=== PATIENT | male | born 1945 ===

== ENCOUNTER 2022-04-25 07:03 | Outpatient (CLI) | payer BC | END 2022-04-25 23:59 | disposition home or self-care (01) | LOC: LAB 07:03 | PROVIDERS: ATTEND Ophthalmology | DX: Z01.812 Encounter for preprocedural laboratory examination (principal); Z20.822 Contact with and (suspected) exposure to COVID-19 ==

== ENCOUNTER 2022-04-26 07:28 | Day surgery (SDC) | payer BC ==
[~2022-04-26 07:28] MED LIST: BALANCED SALT IRRIG SOLN COMB1 500 ML ONE; BALANCED SALT IRRIG SOLN COMB2 15 ML IRRIG.SOLN ONE; BUPIVACAINE PF 0.5% 30 ML VIAL ONE; CIPROFLOXACIN 0.3% OPHT DROP 2.5 ML BOTTLE ONE; HYALURONATE SODIUM 12.8 MG/0.8 ML DISP.SYRIN ONE; HYALURONATE SODIUM 8.5 MG/0.85 ML ONE; LIDOCAINE-MPF 2% 5 ML VIAL ONE; MOXIFLOXACIN HCL 3 ML OPHT DROPS ONE; NEO/POLYMYX B/DEXAME OPHT OINT 3.5 GM TUBE ONE; TETRACAINE HCL 0.5% OPHT DROP 2 ML BOTTLE ONE
[2022-04-26] MEDS ORDERED: PHENYLEPHRINE 2.5% OPHT DROP 2 ML BOTTLE ONE (07:47)
[2022-04-26] MEDS ORDERED: CYCLOPENTOLATE 1% OPHT DROP 2 ML BOTTLE ONE (07:47)
[2022-04-26] MEDS ORDERED: CIPROFLOXACIN 0.3% OPHT DROP 2.5 ML BOTTLE ONE (07:47)
[2022-04-26] MEDS ORDERED: KETOROLAC 0.5% OPHT DROP 3 ML BOTTLE ONE (07:47)
[2022-04-26] MEDS ORDERED: TROPICAMIDE 1% OPHT DROP 3 ML BOTTLE ONE (07:47)
[2022-04-26] MEDS ORDERED: PROPARACAINE 0.5% OPHT DROP 15 ML BOTTLE ONE (07:48)
[2022-04-26] MEDS ORDERED: ACETYLCHOLINE CHLORIDE 1% OPHT 1 EA KIT ONE (07:52)
[2022-04-26] MEDS ORDERED: FENTANYL CITRATE 100 MCG/2 ML AMPUL ONE (07:56)
[2022-04-26] MEDS ORDERED: LIDOCAINE HCL-MPF 1% 5 ML VIAL ONE (08:16)
[2022-04-26] MEDS ORDERED: HYALURONIDASE,OVINE 200 UNITS/ML VIAL ONE (08:20)
[2022-04-26] MEDS ORDERED: TETRACAINE HCL 0.5% OPHT DROP 2 ML BOTTLE ONE ×2 (08:20→09:40)
[2022-04-26] MEDS ORDERED: LIDOCAINE HCL 2% 5 ML JELLY ONE (08:41)
[2022-04-26] MEDS ORDERED: BALANCED SALT IRRIG SOLN COMB1 500 ML, EPINEPHRINE-PF 1:1000 0.5 MG IO ONE ×2 (09:00)
[2022-04-26] MEDS ORDERED: LIDOCAINE-MPF 2% 5 ML VIAL ONE (10:11)
[2022-04-26] MEDS ORDERED: PROPOFOL 200 MG/20 ML BOTTLE ONE (10:11)
== END 2022-04-26 11:30 | disposition home or self-care (01) ==
LOC: DS 07:28
PROVIDERS: ATTEND Ophthalmology
DX: H25.89 Other age-related cataract (principal); I10 Essential (primary) hypertension; M10.9 Gout, unspecified; Z79.899 Other long term (current) drug therapy; Z98.890 Other specified postprocedural states
CPT/HCPCS: 66984; J7321 ×2; J0171; J3490; J3010; J7120; A4663; J3471; V2632

== ENCOUNTER 2022-05-08 07:46 | Outpatient (CLI) | payer BC | END 2022-05-08 23:59 | disposition home or self-care (01) | LOC: LAB 07:46 | PROVIDERS: ATTEND Ophthalmology | DX: Z01.812 Encounter for preprocedural laboratory examination (principal); Z20.822 Contact with and (suspected) exposure to COVID-19 ==

== ENCOUNTER 2022-05-10 07:28 | Day surgery (SDC) | payer BC ==
[~2022-05-10 07:28] MED LIST changes: -BALANCED SALT IRRIG SOLN COMB1 500 ML ONE; +BALANCED SALT IRRIG SOLN COMB1 500 ML, EPINEPHRINE-PF 1:1000 0.5 MG IO ONE; -BALANCED SALT IRRIG SOLN COMB2 15 ML IRRIG.SOLN ONE; -BUPIVACAINE PF 0.5% 30 ML VIAL ONE; -CIPROFLOXACIN 0.3% OPHT DROP 2.5 ML BOTTLE ONE; -HYALURONATE SODIUM 12.8 MG/0.8 ML DISP.SYRIN ONE; -HYALURONATE SODIUM 8.5 MG/0.85 ML ONE; -LIDOCAINE-MPF 2% 5 ML VIAL ONE; -MOXIFLOXACIN HCL 3 ML OPHT DROPS ONE; -NEO/POLYMYX B/DEXAME OPHT OINT 3.5 GM TUBE ONE; -TETRACAINE HCL 0.5% OPHT DROP 2 ML BOTTLE ONE
[2022-05-10] MEDS ORDERED: hydrALAZINE HCL 20 MG/1 ML VIAL IM ONE (07:29)
[2022-05-10] MEDS ORDERED: BALANCED SALT IRRIG SOLN COMB2 15 ML IRRIG.SOLN ONE (07:34)
[2022-05-10] MEDS ORDERED: LIDOCAINE HCL-MPF 1% 5 ML VIAL ONE (07:35)
[2022-05-10] MEDS ORDERED: BALANCED SALT IRRIG SOLN COMB1 0 ML ONE (07:35)
[2022-05-10] MEDS ORDERED: BUPIVACAINE PF 0.5% 30 ML VIAL ONE (07:35)
[2022-05-10] MEDS ORDERED: MOXIFLOXACIN HCL 3 ML OPHT DROPS ONE (07:35)
[2022-05-10] MEDS ORDERED: NEO/POLYMYX B/DEXAME OPHT OINT 3.5 GM TUBE ONE (07:35)
[2022-05-10] MEDS ORDERED: TETRACAINE HCL 0.5% OPHT DROP 2 ML BOTTLE ONE (07:35)
[2022-05-10] MEDS ORDERED: HYALURONATE SODIUM 12.8 MG/0.8 ML DISP.SYRIN ONE (07:36)
[2022-05-10] MEDS ORDERED: HYALURONIDASE,OVINE 200 UNITS/ML VIAL ONE (07:36)
[2022-05-10] MEDS ORDERED: ACETYLCHOLINE CHLORIDE 1% OPHT 1 EA KIT ONE (07:36)
[2022-05-10] MEDS ORDERED: HYALURONATE SODIUM 8.5 MG/0.85 ML ONE (07:36)
[2022-05-10] MEDS ORDERED: CYCLOPENTOLATE 1% OPHT DROP 2 ML BOTTLE ONE (07:37)
[2022-05-10] MEDS ORDERED: CIPROFLOXACIN 0.3% OPHT DROP 2.5 ML BOTTLE ONE (07:37)
[2022-05-10] MEDS ORDERED: PHENYLEPHRINE 2.5% OPHT DROP 2 ML BOTTLE ONE (07:38)
[2022-05-10] MEDS ORDERED: TROPICAMIDE 1% OPHT DROP 3 ML BOTTLE ONE (07:38)
[2022-05-10] MEDS ORDERED: KETOROLAC 0.5% OPHT DROP 3 ML BOTTLE ONE (07:38)
[2022-05-10] MEDS ORDERED: PROPARACAINE 0.5% OPHT DROP 15 ML BOTTLE ONE (07:40)
[2022-05-10] MEDS ORDERED: FENTANYL CITRATE 100 MCG/2 ML AMPUL ONE (08:32)
== END 2022-05-10 11:57 | disposition home or self-care (01) ==
LOC: DS 07:28
PROVIDERS: ATTEND Ophthalmology
DX: H25.12 Age-related nuclear cataract, left eye (principal); I10 Essential (primary) hypertension; Z79.899 Other long term (current) drug therapy; Z98.890 Other specified postprocedural states
CPT/HCPCS: 66984; J7321 ×2; J3490 ×2; J0171; J0360; J3010; J7120; A4663; J3471; V2632